=== PATIENT | female | born 1990 | race Caucasian/White ===

== ENCOUNTER 2020-01-26 10:13 | Outpatient (CLI) | payer OTHER, MEDICAID, SELFPAY ==
[2020-01-26 11:58] LABS: Hematocrit 37.4 % (37.0-47.0)
[2020-01-26 12:06] LABS: Glucose 1 Hour PP 50gm Dose 112 mg/dL
[2020-01-26 12:47] LABS: HIV 1/2 Ab P24 Ag Result Negative (Negative)
== END 2020-01-26 10:14 | disposition home or self-care (01) ==
PROVIDERS: Visit Provider Obstetrics & Gynecology
DX: Z34.02 Encounter for supervision of normal first pregnancy, second trimester (principal)
CPT/HCPCS: 36415; 82947; 85014; 85018; 86703; G0432

== ENCOUNTER 2020-04-04 09:11 | Outpatient (RCR) | payer OTHER, SELFPAY ==
[2020-04-04 09:59] VITALS: BP 99/62; PULSE 94
== END 2020-04-11 08:23 | disposition home or self-care (01) ==
LOC: ANHOBOP 09:11
PROVIDERS: Visit Provider Obstetrics & Gynecology
DX: O36.8130 Decreased fetal movements, third trimester, not applicable or unspecified (principal); Z3A.38 38 weeks gestation of pregnancy
CPT/HCPCS: 59025

== ENCOUNTER 2020-04-10 16:14 | Outpatient (CLI) | payer OTHER, SELFPAY ==
[2020-04-10 16:34] LABS: Hematocrit 37.2 % (37.0-47.0); Hemoglobin 12.7 g/dL (12.0-15.0); Mean Corpuscular HGB Conc 34.1 g/dl (32-36); Mean Corpuscular Hemoglobin 31.6 pg (26-34); Mean Corpuscular Volume 92.5 fl (80-100); Mean Platelet Volume 10.1 fl (7.4-10.4); Platelet Count Result 239 k/mm3 (150-375); Red Blood Count 4.02 M/mm3 (4.2-5.4); Red Cell Distribution Width 12.7 % (11.5-14.5); White Blood Count 10.8 K/mm3 (4.5-10.0)
[2020-04-11 07:28] LABS: Rapid Plasma Reagin Non-Reactive (NonReactive)
== END 2020-04-10 16:15 | disposition home or self-care (01) ==
LOC: ANHLAB 16:16
PROVIDERS: Visit Provider Obstetrics & Gynecology
DX: Z01.818 Encounter for other preprocedural examination (principal)
CPT/HCPCS: 36415; 85027; 86592; 86850; 86900; 86901

== ENCOUNTER 2020-04-11 05:19 | Inpatient (IN) | payer OTHER, SELFPAY ==
--- NOTE | 2020-03-22 14:59 | PC.NURSE ---
VERIFIED WITH OR SCHEDULE AND PATIENT --C/S ON 04/11/20 AT 0730 PATIENT GIVEN REQUISITION FOR LAB DRAW ON 04/10/20
[2020-04-11] VITALS (39 sets, daily range): BP systolic 89–107; BP diastolic 54–73; PULSE 51–170; RESP 14–18; TEMP 35.5–36.8; O2SAT 89–100; BMI 43.4
[2020-04-11] MEDS: LACTATED RINGERS 1,000 ML 999 ML IV CONT (06:00)
--- NOTE | 2020-04-11 06:16 | LDADM ---
This patient, Regina Chaudhry, was admitted to Labor/Delivery/Recovery 119 on 04/11/20 at 05:19. Plans for , pain management and were discussed with patient. Patient/family oriented to hospital policies and general routines including ID bracelet, bed and alarms, visiting hours, pain management, procedures, bathroom and other care routines, personal items, smoking policy, room service/diet and guest tray routines, infant security routines, and visiting hours. Patient/Family are encouraged to report perceived risks to care and to ask questions if they do not understand what they are told or what they should do. See OBIX for further documentation.
--- NOTE | 2020-04-11 06:45 | WPDANESEPPF ---
Anes - Initial Pre Proc Eval Procedure: Operation Date: 04/11/20 07:30 Proposed Procedures p Repeat Section - Santos Palomino MD Date/Time: 04/11/20 06:45 Surgeon: Santos Palomino MD Pre Op Diagnosis: Repeat C Section Patient Data Age: 29 Gender: F Height: 5 ft 3 in Weight: 111.4 kg Last Vital Signs Temp 35.5 C L 04/11/20 05:30 Pulse 79 04/11/20 05:39 BP 105/60 04/11/20 05:39 Allergies Allergy/AdvReac Type Severity Reaction Status Date / Time No Known Allergies Allergy Verified 03/22/20 14:43 Home Medications Medication Instructions Recorded Confirmed Type PNV cmb#95-ferrous fumarate-FA 1 tablet PO DAILY 03/22/20 03/22/20 History [] Patient hx anesthesia problems: none Family hx anesthesia problems: none PMFSH Past Medical History Medical History (Updated 04/11/20 @ 06:45 by Fabio Belle MD) Morbid obesity Surgical History Surgical History (Updated 04/11/20 @ 06:45 by Fabio Belle MD) History of section Family History Family History Mother Diabetes mellitus Social History Social History Smoking status: Never smoker Substance use: never Spiritual care concerns: No Anes - Eval Final PreProcedure Day of Procedure 04/11/20 06:45 Patient weight: morbidly obese Heart: regular rate and rhythm Lungs: clear to auscultation Airway: Mallampati scale class II Neurological: alert and oriented Last oral intake: >/= 8 hours ASA classification: II Emergent: no Anesthetic plan: proceed Anesthesia type and monitoring: regional spinal and standard monitoring Informed Consent: The patient's anesthetic plan and its attendant risks and benefits were discussed with the patient/family/POA. Questions were solicited and answers provided to the satisfaction of the patient/family/POA.
--- NOTE | 2020-04-11 07:02 | WPDHPUPDATE1 ---
History and Physical Update Update Date/Time: 04/11/20 07:02 History and Physical has been reviewed, including an updated exam of the patient. There are NO changes in the patient's condition. Risks, benefits, and alternatives have been discussed and questions answered. Patient agrees to proceed with procedure.
--- NOTE | 2020-04-11 07:02 | PM.IMHP ---
H&P: HPI History of Present Illness Date/Time: 04/11/20 07:02 Chief complaint: Repeat C Section Narrative: Regina Chaudhry is a 29 year old female 002 presents for repeat delivery. Prior section due to twin gestation with 1st baby and breech position. care has been without abnormality. Records are on the chart. Review of Systems Review of Systems: All systems reviewed & are unremarkable except as noted in HPI and below PMFSH Past Medical History Medical History Morbid obesity Surgical History Surgical History History of section Family History Family History Mother Diabetes mellitus Social History Social History Smoking status: Never smoker Substance use: never Spiritual care concerns: No Meds Home Medications and Allergies Home Medications Medication Instructions Recorded Confirmed Type PNV cmb#95-ferrous fumarate-FA 1 tablet PO DAILY 03/22/20 03/22/20 History [] Allergies Allergy/AdvReac Type Severity Reaction Status Date / Time No Known Allergies Allergy Verified 03/22/20 14:43 Vital Signs Vital Signs - 24 hr 04/11/20 05:30 04/11/20 05:39 Temperature 35.5 C L Pulse Rate 79 Blood Pressure 105/60 Exam Resp: Effort & Inspection: normal respiratory effort Auscultation: clear to auscultation bilaterally Cardio: Rate: regular rate Rhythm: regular rhythm GI: Inspection: normal to inspection Auscultation: normal bowel sounds Other: Fundal height 40cm heart tones 140 Assessment and Plan Assessment and plan (1) 39 weeks gestation of : Code(s): Z3A.39 - 39 weeks gestation of Status: Acute (2) Previous delivery affecting : Code(s): O34.219 - Maternal care for unspecified type scar from previous delivery Status: Acute Additional Plan proceed with repeat low transverse section.
[2020-04-11] MEDS: ceFAZolin 2 GM/D5W 50 ML 2 GM/50 ML BAG IVPB (07:06)
[2020-04-11] MEDS: LACTATED RINGERS 1,000 ML 125 ML IV CONT (07:23)
--- NOTE | 2020-04-11 08:26 | P.PCNOB_ITS ---
OB - Delivery Note Procedure Procedure: Procedures Operation Date: 04/11/20 07:30 <No data on this case meets the specified criteria> Route of delivery: Estimated blood loss (mL): 450 Anesthesia type: Spinal Disposition: PACU Narrative: Patient prepped and draped in usual manner for this procedure. Pfannenstiel incision was made with carried down to the fascia which was extended bilaterally and extended from the rectus muscles. This point. Was entered dense adhesions of the uterus to the low lower portion of the abdominal cavity were noted and taken down a bladder flap was developed and uterus scored with vertex delivered section naso-oropharynx rest of baby was delivered cor was clamped and cut and placenta removed manually. Uterus was unable to be exteriorized due to the adhesions and after membranes and clots were removed from the cavity the incision was closed using 0 Monocryl running interlocking manner with good approximation hemostasis noted. Adhesions on the superior portion of the uterus with and rendered hemostatic using 0 Monocryl running interlocking manner. Trey Gelfoam and Interceed were placed over this area. All subfascial tissue did noted to be hemostatic and was approximated using 0 Vicryl left angle midline and the right and midline good approximation hemostasis noted. Subcutaneous tissue was approximated 0 plain suture and flaco were used to approximate skin edges. [facility] Baby Weeks of gestation at delivery: 39 Infant gender: Male Weight (pounds): 7 Weight (ounces): 1 score one minute: 8 score five minutes: 9
[2020-04-11] MEDS: LORATADINE 10 MG TABLET PO (09:00)
[2020-04-11] MEDS: OXYTOCIN 30 UNITS/NS 500 ML 30 UNITS/500 ML BAG 125 UNITS IV CONT (09:00)
[2020-04-11] MEDS: fentaNYL CITRATE INJ (*CRX) 100 MCG/2 ML VIAL 25 MCG IV PUSH ×2 (09:44→10:30)
--- NOTE | 2020-04-11 10:50 | OBPPTRN ---
Patient transferred to post room #278 via stretcher at 1050am. Support person present. Oriented to unit, room, information board, rooming in, admission packet and security measures. Patient verbalizes understanding.
[2020-04-11] MEDS: KETOROLAC 30 MG/ML VIAL (*BKC) IV PUSH (12:49)
[2020-04-11] MEDS: DEXTROSE 5%/0.45% SOD CHL 1,000 ML 125 ML IV CONT (13:50)
--- NOTE | 2020-04-11 13:50 | PC.NURSE ---
Mother called out for assistance with feeding, reporting fed after delivery and has attempted a few times without a latch. Demonstrated stimulation techniques to wake for feeding. Assisted with infant to breast. Reviewed feeding cues, frequencies, duration of feedings, feeding elimination flow sheet, and signs of adequate intake. Reviewed positioning/alignment in cross cradle, holding breast in U hold and guided asymmetrical latch on. Discussed rational for each. was able to latch correctly within a few attempts. nursed sleepily with bursts of draws and occasional swallowing noted, followed with long pausing. Reviewed signs of a correct latch, effective nursing and suck swallow ratio. Infant was able to maintain latch without discomfort to mother. Nipple care reviewed. Suggested mother stimulate infant while feeding to keep infant awake and nursing effectively for increased intake and to assist with maintaining deep latch. Instructed mother to call out for RN assistance if she is unable to latch infant for feeding or she has discomfort with nursing. Instructed feeding should be initiated three hours from start of last feeding or if feeding cues are noted before. Mother voiced understanding of information shared.
[2020-04-11] MEDS: ACETAMINOPHEN 325 MG TABLET 650 MG PO (22:24)
[2020-04-12 04:10] VITALS: BP 100/58; PULSE 83; RESP 17; TEMP 36.6
[2020-04-12] MEDS: HYDROcodone/acetaminophen (*CRX) 5-325 MG TABLET 1 TAB PO ×5 (04:39→21:57)
[2020-04-12 06:07] LABS: Basophils Percent Auto 0.2 % (0.2-1.2); Eosinophils Absolute Auto 0.1 K/mm3 (0-0.3); Eosinophils Percent Auto 0.6 % (0-4.4); Hematocrit 29.7 % (37.0-47.0); Immature Granulocyte Absolute 0.06 K/mm3 (0.00-0.031); Immature Granulocyte Percent A 0.5 % (0-0.5); Lymphocytes Absolute Auto 2.38 K/mm3 (0.9-3.2); Lymphocytes Percent Auto 19.1 % (18.3-44.2); Mean Corpuscular HGB Conc 33.7 g/dl (32-36); Mean Corpuscular Hemoglobin 31.8 pg (26-34); Mean Corpuscular Volume 94.6 fl (80-100); Mean Platelet Volume 10.5 fl (7.4-10.4); Monocytes Absolute Auto 0.8 K/mm3 (0.1-0.6); Monocytes Percent Auto 6.2 % (2.6-8.5); Neutrophils Absolute Auto 9.1 K/mm3 (1.3-6.7); Neutrophils Percent Auto 73.4 % (45.5-73.1); Platelet Count Result 176 k/mm3 (150-375); Red Blood Count 3.14 M/mm3 (4.2-5.4); Red Cell Distribution Width 13.2 % (11.5-14.5); White Blood Count 12.4 K/mm3 (4.5-10.0)
[2020-04-12 07:45] VITALS: BP 109/64; PULSE 98; RESP 18; TEMP 36.6; O2SAT 98
[2020-04-12] MEDS: DOCUSATE SODIUM 100 MG CAPSULE PO (08:15)
[2020-04-12] MEDS: MULTIVIT/MIN/PREN/FOL AC/IRON TABLET 1 TAB PO (08:15)
[2020-04-12] MEDS: IBUPROFEN 600 MG TABLET PO ×3 (08:15→21:57)
--- NOTE | 2020-04-12 10:43 | WPDANLDPN2 ---
Anes-Prog Note L&D Date/Time: 04/12/20 10:43 Comfortable throughout: section Neuraxial method: spinal Epidural/Spinal procedure site: clean & non-tender Neuro status: Neuro function grossly intact. Cardiovascular status: normal Respiratory status: normal Airway patency: baseline Mental status: baseline Post-Op hydration status: normal Vital Signs: Last Vital Signs Temp 36.6 C 04/12/20 07:45 Pulse 98 04/12/20 07:45 Resp 18 04/12/20 07:45 BP 109/64 04/12/20 07:45 Pulse Ox 98 04/12/20 07:45 Pain score (VAS): 2 I/O: Intake & Output 04/11/20 04/12/20 04/12/20 23:59 07:59 15:59 Intake Total 450 2400 Output Total 800 2550 500 Balance -350 -150 -500 Post-procedural complaints: none Patient feedback: Patient satisfied with anesthetic care.
--- NOTE | 2020-04-12 10:44 | WPDANLDNPN2 ---
Anes-Prog Note L&D-Neuraxial Date/Time: 04/12/20 10:44 Neuraxial medications: intrathecal PF morphine Opiod-related complaints: none Patient feedback: Patient satisfied with post-operative pain management.
[2020-04-12] MEDS: SIMETHICONE 80 MG TAB.CHEW PO ×2 (11:48→21:57)
--- NOTE | 2020-04-12 16:22 | P.DS_ITS ---
DS: Admitting Diagnosis Admitting Diagnosis Admitting Diagnosis: Repeat C Section OB - DS: Summary OB Procedures : None OB Procedures Intrapartum: OB Procedures: : None Peripartum Data Procedures: Procedures Operation Date: 04/11/20 07:30 Actual Procedures Side Surgeon p Section Santos Palomino MD Time Spent with Patient Time attestation: Total time spent providing and/or coordinating discharge services: DS: Data Data Completed and Pending Labs on day of discharge: Labs from last 24 hours 04/12/20 04:26 WBC 12.4 H RBC 3.14 L Hgb 10.0 L Hct 29.7 L MCV 94.6 MCH 31.8 MCHC 33.7 RDW 13.2 Plt Count 176 MPV 10.5 H Immature Gran % (Auto) 0.5 Neut % (Auto) 73.4 H Lymph % (Auto) 19.1 Levy % (Auto) 6.2 Eos % (Auto) 0.6 Baso % (Auto) 0.2 Lymph # (Auto) 2.38 Levy # (Auto) 0.8 H Eos # (Auto) 0.1 Baso # (Auto) 0.0 Abs Immat Gran (auto) 0.06 H Absolute Neuts (auto) 9.1 H Absolute Nucleated RBC 0.0 Nucleated RBC % 0.0 Discharge Plan Discharge Discharging Clinician: Santos Palomino Anticipated Discharge Date/Time: 04/13/20 08:26 Patient Disposition: Home, Self-Care Activity: as tolerated Diet: as tolerated Wound Care Instructions: incision open to air Discharge Instructions: office wednesday for staple removal Patient Instructions: Antibiotic Form Stand Alone Forms: General Discharge Information Follow-up/Referrals: Santos Palomino MD [Physician] - 3 Weeks Discharge Medications: New hydrocodone-acetaminophen 5-325 mg Tablet 1 tablet PO Q6H Qty: 20 RF: 0 ibuprofen 600 mg Tablet 600 mg PO Q6H PRN (Reason: Cramping) Qty: 30 RF: 0 Continued PNV cmb#95-ferrous fumarate-FA [] 28 mg iron- 800 mcg Tablet 1 tablet PO DAILY RF: 0 Date of admission: 04/11/20 05:19 Primary Care Provider: PHYSICIAN,SENIOR ANALYST [employer] Admitting Provider: Santos Palomino Attending physician on admission: Santos Palomino
[2020-04-12 19:40] VITALS: BP 108/68; PULSE 82; RESP 14; TEMP 36.6
[2020-04-13] MEDS: SIMETHICONE 80 MG TAB.CHEW PO ×2 (05:09→09:36)
[2020-04-13] MEDS: HYDROcodone/acetaminophen (*CRX) 5-325 MG TABLET 1 TAB PO ×3 (05:09→12:45)
[2020-04-13] MEDS: IBUPROFEN 600 MG TABLET PO ×2 (05:10→12:45)
--- NOTE | 2020-04-13 09:00 | PC.NURSE ---
PT introductions made and plan of care discussed per post , pain management, breast feeding, daily care activities and pending discharge to home. PT verbalized understanding of such care.
[2020-04-13 09:30] VITALS: BP 111/71; PULSE 90; RESP 18; TEMP 36.6; O2SAT 98
[2020-04-13] MEDS: MULTIVIT/MIN/PREN/FOL AC/IRON TABLET 1 TAB PO (09:36)
[2020-04-13] MEDS: DOCUSATE SODIUM 100 MG CAPSULE PO (09:36)
[2020-04-13 10:30] VITALS: TEMP 36.6
--- NOTE | 2020-04-13 10:30 | PC.NURSE ---
Patient viewed the discharge video Mother & Baby Care, The First Two Weeks . Patient was given the opportunity and encouraged to ask questions. Patient verbalized understanding of information shared and has been given the mother/baby guide for home reference.
--- NOTE | 2020-04-13 11:37 | WPDANLDPN2 ---
Anes-Prog Note L&D Date/Time: 04/13/20 11:37 Comfortable throughout: section Neuraxial method: spinal Epidural/Spinal procedure site: clean & non-tender Neuro status: Neuro function grossly intact. Cardiovascular status: normal Respiratory status: normal Airway patency: baseline Mental status: baseline Post-Op hydration status: normal Vital Signs: Last Vital Signs Temp 36.6 C 04/13/20 10:30 Pulse 90 04/13/20 09:30 Resp 18 04/13/20 09:30 BP 111/71 04/13/20 09:30 Pulse Ox 98 04/13/20 09:30 Pain score (VAS): 0 Post-procedural complaints: none Patient feedback: Patient satisfied with anesthetic care.
--- NOTE | 2020-04-13 11:38 | WPDANLDNPN2 ---
Anes-Prog Note L&D-Neuraxial Date/Time: 04/13/20 11:38 Neuraxial medications: intrathecal PF morphine Opiod-related complaints: none Patient feedback: Patient satisfied with post-operative pain management.
--- NOTE | 2020-04-13 12:30 | PC.NURSE ---
PT received discharge instructions per protocol and verbalized understanding of such care.
--- NOTE | 2020-04-13 13:25 | PC.NURSE ---
PT discharged to home ambulatory accompanied by significant other and and taken to waiting car. follow up appts confirmed
[2020-04-15 08:15] VITALS: BP 116/73; PULSE 84; RESP 18; TEMP 36.9; O2SAT 99
== END 2020-04-13 13:25 | disposition home or self-care (01) | DRG 540 ==
LOC: ANHLDR 05:25 → ANHOB2 10:52
PROVIDERS: Admitting Provider Obstetrics & Gynecology; Visit Provider Obstetrics & Gynecology
PROC: 10D00Z1 Extraction of Products of Conception, Low, Open Approach (ICD-10-PCS; CPT 59514; principal; 2020-04-11 07:30)
DX: O34.211 Maternal care for low transverse scar from previous cesarean delivery (principal); O99.214 Obesity complicating childbirth; E66.01 Morbid (severe) obesity due to excess calories; Z3A.39 39 weeks gestation of pregnancy; Z37.0 Single live birth
CPT/HCPCS: 36415; 59025; 85025; A9270; J0131; J0690; J1100; J1885; J2274; J2370; J2405; J2590; J3010; J7120